=== PATIENT | male | born 1985 | race Caucasian/White ===

== ENCOUNTER 2020-01-22 17:57 | Emergency (ER) | payer SELFPAY ==
[~2020-01-22] VITALS: Ht 182.9 cm; Wt 113.6 kg
[2020-01-22 17:59] VITALS: TEMP 98.5
[2020-01-22 18:36] LABS: BASO # 0.1 (0.0-0.2); EOS % 0.6 % (0-4.0); GRAN # 4.4 (1.4-6.5); GRAN % 64.4 % (42.2-75.2); HEMATOCRIT 47.1 % (42.0-52.0); HEMOGLOBIN 15.9 g/dl (13.5-18.0); LYMPH # 1.7 (1.2-3.4); LYMPH % 24.5 % (20.0-51.0); MEAN CELL VOLUME 95 fl (80.0-100.0); MEAN CORPUSCULAR HEMOGLOBIN 32 pg (27.0-31.0); MEAN CORPUSCULAR HGB CONC 34 g/dl (33.0-37.0); MEAN PLATELET VOLUME 9.8 fl (7.4-10.4); MONO # 0.6 (0.1-0.6); MONO % 9.1 % (1.7-9.3); PLATELET COUNT 230 K/mm3 (130-400); RED BLOOD COUNT 4.97 M/mm3 (4.20-5.60); REDCELL DISTRIBUTION WIDTH-CV 13.8 % (11.5-14.5)
[2020-01-22 18:44] LABS: ALBUMIN 4.9 gm/dL (3.5-5.0); ALKALINE PHOSPHATASE 87 U/L (50-136); ANION GAP 23 mmol/L (7-16); BILIRUBIN,TOTAL 0.8 mg/dL (0.0-1.0); BLOOD UREA NITROGEN 11 mg/dL (9-20); CALCIUM 9.6 mg/dL (8.4-10.2); CHLORIDE 98 mmol/L (98-107); CREATININE, serum 1.43 (0.66-1.25); GLUCOSE 167 mg/dL (74-106); POTASSIUM 3.7 mmol/L (3.4-5.0); SODIUM 136 mmol/L (137-145); TOTAL PROTEIN 8.3 gm/dL (6.4-8.2)
[2020-01-22] MEDS ORDERED: LIPITOR20 MG PO ×2 (18:45→18:51)
[2020-01-22 18:46] LABS: CARBON DIOXIDE 14 mmol/L (22-30)
[2020-01-22] MEDS ORDERED: VITAMIN D32000 I1 PO (18:46)
[2020-01-22 18:47] LABS: ALCOHOL(ethanol),MEDICAL < 10 mg/dL
[2020-01-22] MEDS ORDERED: TIROSINT150 MC1 PO (18:47)
[2020-01-22] MEDS ORDERED: DESYREL 100MG100 MG PO (18:47)
[2020-01-22] MEDS ORDERED: SEROQUEL 1100 MG/TAB PO (18:48)
[2020-01-22] MEDS ORDERED: REMERON30 MG PO (18:48)
[2020-01-22 18:49] LABS: AST,SGOT 112 U/L (15-37)
[2020-01-22] MEDS ORDERED: DEPAKOTE500 MG PO (18:49)
[2020-01-22] MEDS ORDERED: EFFEXOR 50M50 MG/TAB PO (18:49)
[2020-01-22] MEDS ORDERED: DEPAKOTE ER 50500 MG PO (18:50)
[2020-01-22 19:00] LABS: PROLACTIN 21.2 ng/mL (3.7-17.9)
[2020-01-22 19:07] LABS: ALANINE AMINOTRANSFERASE 97 U/L (4-49)
[2020-01-22 19:37] LABS: COLLECTION METHOD CLEAN CATCH
[2020-01-22 19:49] LABS: MUCOUS Present /lpf; PH 6 (5-8); SQUAMOUS EPITHELIAL None Seen /hpf; URINE APPEARANCE Clear; URINE BACTERIA None Seen /hpf; URINE BILIRUBIN Negative (NEGATIVE); URINE BLOOD 1+ (NEGATIVE); URINE COLOR Yellow; URINE GLUCOSE Negative (NEGATIVE); URINE KETONE 1+ (NEGATIVE); URINE LEUKOCYTE ESTERASE Negative (NEGATIVE); URINE NITRATE Negative (NEGATIVE); URINE PROTEIN(semi-quant) 1+ (NEGATIVE); URINE RBC 0-2 /hpf; URINE UROBILINOGEN Negative (NEGATIVE)
[2020-01-22 20:04] LABS: TRICYCLIC ANTIDEPRESS URINE NEGATIVE
[2020-01-22] MEDS ORDERED: DEPAKOTE ER 25250 MG PO (20:13)
[2020-01-22 20:49] VITALS: BP 142/94; PULSE 76
== END 2020-01-22 21:13 | disposition home or self-care (01) ==
LOC: COL.ER 17:57
PROVIDERS: Emergency Medicine
DX: G40.909 Epilepsy, unspecified, not intractable, without status epilepticus (principal)
CPT/HCPCS: J2060; J7030